=== PATIENT | female | born 1955 | race Caucasian/White ===

== ENCOUNTER → 2017-05-29 | Day surgery (SDC) | payer OTHER ==
[~2017-05-29] VITALS: Ht 167.6 cm; Wt 127.0 kg
[~2017-05-29] MED LIST: ATENOLOL25 MG PO; ATIVAN0.5 MG PO; B12 1MG PE1000 MCG/M IM; CIPRO 500MG TA500 MG PO; CIPRO500 MG PO; CLINDAMYCIN HY300 MG PO; FLUOXETINE10 MG PO; FUROSEMIDE20 MG PO; HIPREX1 GM PO; HYDROXYZINE HCL25 M2 PO; HYDROXYZINE HCL25 MG PO; IBUPROFEN800 M1; KEFLEX250 M1 PO; LANSOPRAZOLE15 MG PO; LANSOPRAZOLE30 M2 PO; MACROBID 100 M100 MG PO; MAGIC MOUTHWASH PO; MYCOSTATIN POWD15 GM TOP; ONDANSETRON4 MG PO; PEPCID20 MG PO; PREDNISONE 20MG20 MG PO; PREDNISONE10 M2 PO; PROBIOTIC FORMU1 CAP PO; PYRIDIUM200 MG PO; VICODIN 500 MG-1 TAB PO; VITAMIN D400 IU PO; ZETIA10 MG PO; ZITHROMAX250 M2 PO
--- NOTE | 2017-05-29 13:07 | Operative Report ---
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 She's been treated with multiple cortisone injections. She experienced short-term relief with these injections but had increasing symptoms that interfere with normal activities of daily living. 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 Due to the ongoing symptoms and only short-term term relief from the conservative measures patient wished to proceed with surgical management. Risks benefits and expectations of surgical and further nonsurgical options were discussed which included but were not limited to persistent pain and triggering injury to blood vessel or nerve anesthesia risks stiffness infection. Patient wished to proceed with surgical management Operative/Procedure Note Note: Technical description of the procedure. Patient was brought to the operating room and transferred to the operating table. Once under appropriate anesthesia the right upper extremity was prepped and draped in standard fashion. Preoperative IV antibiotic's were given prophylactically. A lateral arm was elevated exsanguinated tourniquet was inflated. A standard transverse incision was centered over the MCP crease of the middle finger Measuring approximately 2 cm. Incision was taken down bluntly to the underlying tendon sheath. The A1 alexandra was identified and released under direct vision. Copious irrigation followed. The tendons were evaluated no evidence of any tearing. No evidence of cystic formation. Freely moving tendons after the release was completed. After irrigation was completed the skin was closed with interrupted nylon sutures. Appropriate dressings were applied and patient was awakened and taken the recovery room in good condition. No intraoperative complications Discharge Disposition: PACU
== END ==
LOC: STS 03:36
DX: M65.331 Trigger finger, right middle finger (principal); M65.841 Other synovitis and tenosynovitis, right hand; L93.0 Discoid lupus erythematosus; F17.200 Nicotine dependence, unspecified, uncomplicated; K21.9 Gastro-esophageal reflux disease without esophagitis; M51.16 Intervertebral disc disorders with radiculopathy, lumbar region; E66.01 Morbid (severe) obesity due to excess calories
CPT/HCPCS: J2250

== ENCOUNTER → 2017-10-24 | Day surgery (SDC) | payer OTHER ==
[2008-01-27 08:03] VITALS: BP 135/75
--- NOTE | 2017-10-26 09:25 | RADIOLOGY REPORT ---
EXAMINATION: CR ABDOMEN/INTRAOPERATIVE FLUOROSCOPY CLINICAL INDICATION: Cystoscopy with bilateral ureteroscopy with retrograde pyelogram. COMPARISON: KUB dated 10/22/2015. TECHNIQUE/FINDINGS: Fluoroscopic equipment was dedicated to the operating room for the performance of an intraoperative procedure. Several (3) spot films were acquired and are archived in PACS. Please refer to operative notes for procedural detail. FLUOROSCOPY TIME: 8.8 seconds. IMPRESSION: Administrative dictation for intraoperative fluoroscopy and image archiving in PACS. Please refer to operative notes for details.
--- NOTE | 2017-10-26 10:22 | Operative Report ---
Operative/Inv Procedure Report Surgery Date: 10/24/17 Name of Procedure: cysto: bilateral retrograde pyelogram Pre-Operative Diagnosis: gross hematuria Post-Operative Diagnosis: same Estimated Blood Loss: scant Surgeon/Circuits Engineer: Efe Jeong MD Anesthesia: moderate sedation Complications: none Operative/Procedure Note Note: The patient was taken to the operating room and placed on the OR table in supine position. Time out was performed, with the patient awake, to confirm correct identity, laterality, procedure, and other pertinent intra-operative information. After adequate anesthesia and antibiotics, the patient was then placed lithotomy stirrups draped and prepped in the usual surgical fashion. A 22 Urdu cystoscope sheath with a 30 angle lens was inserted without difficulty. Upon entering the bladder, the bladder was noted to be free of tumor free of stone, with both orifices in their orthotopic position. Bilateral clear efflux of urine was seen from both orifices. The left orifice was intubated with an open ended ureteral catheter and retrograde pyelogram was performed revealing no stone/tumor and brisk excretion of contrast material. After removing the catheter from the left side, the right orifice was intubated, and retrograde pyelogram was performed on the right side. There was no filling defect on the right side as well, with brisk efflux of contrast. Having found NO pathology on either side, the bladder was then hydrodistended 2 with the irrigation fluid at 40 cm above the symphysis pubis. No increased petechiae was noted. No Hunner's ulceration was noted. Of note the patient has a mildly denuded bladder with hypervascularity consistent with history of IC. There was no terminal bleed. After completing the retrograde pyelograms bilaterally, and the hydrodistention, the bladder was then drained and the cystoscope was removed. The pt. tolerated the procedure well was then taken to the recovery room in satisfactory condition. The patient is to be discharged home to follow up in few weeks time for re-evaluation and plans. Findings: no tumor:no stone Discharge Disposition: Same Day Admissions CC: Efe Jeong MD
== END ==
LOC: STS 07:00
DX: R31.9 Hematuria, unspecified (principal); N32.89 Other specified disorders of bladder; K21.9 Gastro-esophageal reflux disease without esophagitis; J45.909 Unspecified asthma, uncomplicated; K44.9 Diaphragmatic hernia without obstruction or gangrene
CPT/HCPCS: 36415; 74018; 93005; 93010; J0131; J1580; J2250

== ENCOUNTER 2018-01-15 17:55 | Emergency (ER) | payer OTHER ==
[~2018-01-15] VITALS: Ht 165.1 cm; Wt 127.0 kg
[~2018-01-15 17:55] MED LIST changes: +ATENOLOL25 M1 PO; -ATENOLOL25 MG PO; -B12 1MG PE1000 MCG/M IM; +CYANOCOBAL1000 MCG/2 IM; +DEXILANT60 M1 PO; +FLUOXETINE HCL10 M2 PO; -FLUOXETINE10 MG PO; +HYDROXYZINE HCL50 M1 PO; +VITAMIN D3400 UNI1 PO; -VITAMIN D400 IU PO; +ZETIA10 M1 PO; -ZETIA10 MG PO
--- NOTE | 2018-01-15 19:57 | CT SCAN REPORT ---
EXAMINATION: CT HEAD WITHOUT CONTRAST CLINICAL INFORMATION: Headache COMPARISON: CT head 12/20/2017 TECHNIQUE: Contiguous axial imaging was performed from the skull base to vertex without intravenous administration of contrast. DLP: 606 mGy-cm FINDINGS: There is no evidence of acute intracranial hemorrhage or territorial infarction. No abnormal mass effect or midline shift is seen. Bowser to white matter differentiation is well preserved. No extra-axial fluid collections are identified. The ventricles are normal in size. There is no abnormal attenuation within the brain parenchyma. The osseous structures and soft tissues are normal. The mastoid air cells and visualized portions of the paranasal sinuses are well aerated. IMPRESSION: No acute intracranial process. No major change from the previous study
--- NOTE | 2018-01-15 20:31 | ED GENERAL ADULT ---
History of Present Illness General Chief Complaint: General Adult Stated Complaint: BOOKER MULTIPLE DAYS, STUNG BY BEE ON NECK Source: patient Exam Limitations: no limitations Vital Signs & Intake/Output Vital Signs & Intake/Output Vital Signs Date Time Temp Pulse Resp B/P B/P Pulse O2 O2 Flow FiO2 Mean Ox Delivery Rate 01/16 2208 98.8 74 20 124/68 97 Room Air 01/15 2206 Room Air Room Air 01/15 2033 98.7 72 18 116/61 97 Room Air ED Intake and Output 01/16 0000 01/15 1200 Intake Total Output Total Balance Patient 280 lb Weight Allergies Coded Allergies: nut - unspecified (Severe, SWELLING, anaphylaxis 10/24/17) Penicillins (Intermediate, rash 10/24/17) ciprofloxacin (From CIPRO) (Intermediate, HIVES, welts 10/24/17) nitrofurantoin (From MACROBID) (Intermediate, decrease bp, diarrhea, hives 10/24) cefuroxime (From CEFTIN) (RASH 12/20/17) trimethoprim (From BACTRIM) (Severe, MIGRAINE 07/03/15) clarithromycin (Intermediate, VOMIT 10/24/17) oxycodone (From PERCODAN) (Intermediate, NAUSEA 10/24/17) sulfamethoxazole (From BACTRIM) (Intermediate, MIGRAINE 10/24/17) codeine (JITTERY 07/03/15) doxycycline (AFIB 07/03/15) Reconcile Medications Atenolol 25 MG TABLET 1 TAB PO DAILY HEART (Reported) Cholecalciferol (Vitamin D3) (Vitamin D3) 400 UNIT TABLET 1 TAB PO DAILY VITAMIN SUPPORT (Reported) Clindamycin HCl (Cleocin HCl) 300 MG CAPSULE 1 CAP PO TID CELLULITIS Cyanocobalamin (Vitamin B-12) (Cyanocobalamin Injection) 1,000 MCG/ML VIAL 1 ML IM Q30D VITAMIN SUPPORT (Reported) Dexlansoprazole (Dexilant) 60 MG COMPA.BP 1 CAP PO DAILY GI (Reported) Ezetimibe (Zetia) 10 MG TABLET 1 TAB PO DAILY CHOLESTEROL (Reported) Fluoxetine HCl 10 MG CAPSULE 1 CAP PO DAILY MENTAL HEALTH (Reported) Hydroxyzine Hydrochloride (Atarax) 50 MG TAB 1 TAB PO TID PRN ITCHING Prednisone 10 MG TABLET 1 DOSE PO ONCE DAILY ALLERGY 5 TABS X 3 DAYS 4 TABS X 3 DAYS 3 TABS X 3 DYAS 2 TABS X 3 DAYS 1 TAB X 3 DAYS Triage Note: 62F WITH PRESSURE HEADACHE X1 MONTH. TAKING MULTIPLE MEDS WITHOUT RELIEF. ALSO WAS STUNG BY A BEE TO BACK OF NECK YESTERDAY AND NOW WORSENING SWELLING, WARMTH AND REDNESS. AFEBRILE. DENIES VISION CHANGES OR PHOTOSENSITIVITY. HEAD PRESSURE IS WORSE WHEN FLAT. +RHINORRHEA AND POST NASAL Triage Nurses Notes Reviewed? yes Onset: Abrupt Duration: week(s): (2 to 3 months), changing over time, continues in ED, getting worse Timing: recent history Injury Environment: home Severity: moderate, severe Severity Numbers: 7 No Modifying Factors: none LMP (ages 10-50): post menopausal, unknown : No Patient currently breastfeeds: No HPI: 62 y/o female past medical history of hypertension, obesity, asthma presents for evaluation of headaches and a bee sting. Patient reports she's been having headaches intermittently over the past 2 or 3 months. She states she'll the headache every day when she wakes up. She describes it as a global pressure worse in the frontal area. She denies any head strike. She states she's been taking Excedrin and Tylenol with only mild improvement. She reports that the headache does go away at the end of the day only to return the next day. She was evaluated here a little less than a month ago with a head CT that was negative she never followed up. She also reports she was stung by a bee to the left posterior neck yesterday and she thinks that it may be infected. She states that the redness and swelling has gotten worse. No fevers no discharge. She denies nausea vomiting abdominal pain chest pain shortness of breath photophobia. She does report some associated nasal congestion and rhinorrhea. (Prem Alvarez) Past History Travel History Traveled to [place] past 21 day No Medical History Any Pertinent Medical History? 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 No (Prem Alvarez) Review of Systems Review of Systems Constitutional: Reports: no symptoms. EENTM: Reports: nasal congestion. Respiratory: Reports: no symptoms. Cardiovascular: Reports: no symptoms. GI: Reports: no symptoms. Genitourinary: Reports: no symptoms. Musculoskeletal: Reports: no symptoms. Skin: Reports: see HPI, erythema. Neurological/Psychological: Reports: headache. Hematologic/Endocrine: Reports: no symptoms. Immunologic/Allergic: Reports: no symptoms. All Other Systems: Reviewed and Negative (Prem Alvarez) Physical Exam Physical Exam General Appearance: well developed/nourished, no apparent distress, alert, awake , obese Head: atraumatic, normal appearance Eyes: Bilateral: normal appearance, PERRL, EOMI. Ears, Nose, Throat: normal pharynx, normal ENT inspection, hearing grossly normal, no sinus tenderness Neck: normal inspection, supple, full range of motion, there is a 2 cm x 5 cm area of induration and erythema located on the left posterior neck. No focal fluctuant area is no discharge no lymphatic streaking no lymphadenopathy. The area is tender to palpation. No visible bee stinger Respiratory: normal breath sounds, chest non-tender, no respiratory distress, lungs clear Cardiovascular: regular rate/rhythm, normal peripheral pulses Peripheral Pulses: 2+ radial (R), 2+ radial (L) Gastrointestinal: soft, non-tender Back: normal inspection, normal range of motion, no vertebral tenderness Extremities: normal inspection, normal range of motion, no edema Neurologic/Psych: no motor/sensory deficits, awake, alert, oriented x 3, normal gait, normal mood/affect, counseling center director II-XII nml as tested, cerebellar testing intact Skin: intact, normal color, warm/dry Lymphatic: no anterior cervical wyatt Core Measures ACS in differential dx? No CVA/TIA Diagnosis: No Sepsis Present: No Sepsis Focused Exam Completed? No (Prem Alvarez) Progress Differential Diagnoses I considered the following diagnoses in my evaluation of the patient: [Cluster headaches, migraine headache, tension headache, intracranial hemorrhage, intracranial mass, temporal arteritis, cellulitis, sinusitis, bee sting] Plan of Care: Orders Procedure Date/time Status LIPASE 01/15 2029 Complete TROPONIN LEVEL 01/15 2001 Complete COMPREHENSIVE METABOLIC PANEL 01/15 2001 Complete CBC WITHOUT DIFFERENTIAL 01/15 2001 Complete EKG 01/15 2001 Active Laboratory Tests 01/15/182028: Anion Gap 8, Estimated GFR > 60, BUN/Creatinine Ratio 18.3, Glucose 101 H, Calcium 9.6, Total Bilirubin 0.3, AST 18, ALT 37, Alkaline Phosphatase 93, Troponin I < 0.01, Total Protein 6.6, Albumin 4.0, Globulin 2.6, Albumin/ Globulin Ratio 1.5, Lipase 90, CBC w Diff NO MAN DIFF REQ, RBC 5.02, MCV 80.2 L , MCH 26.6 L, MCHC 33.1, RDW 16.2 H, MPV 7.9, Gran % 57.2, Lymphocytes % 33.4, Monocytes % 6.0, Eosinophils % 2.9, Basophils % 0.5, Absolute Granulocytes 4.7, Absolute Lymphocytes 2.8, Absolute Monocytes 0.5, Absolute Eosinophils 0.2, Absolute Basophils 0 01/15/182003: Lipase Cancelled Patient is here for evaluation of frequent headaches and a bee sting. She is getting headaches for several months now. The headaches go away completely as the day but returned the next day. She had a normal head CT one month ago. No head trauma. She is neurologically intact. No fevers. She also has a bee sting to the left posterior neck. She is concerned may be infected. A repeat head CT labs EKG ordered. Blood work is unremarkable repeat head CT is negative. Patient was medicated with ibuprofen and is feeling better. Advised that the bee sting to her left posterior neck may not be effective this time may just be inflammation. Patient has significant allergies to multiple antibiotics your antibiotic she can tolerate his clindamycin. Patient was given a prescription for this but advised to wait 2 or 3 days to see if the redness and swelling will go down on its own. Advised her to apply ice use Benadryl and ibuprofen for pain and swelling and itching. If the redness spreads swelling gets worse she has fever start antibiotics for full course. Patient was advised to follow-up with her doctor and was referred to a neurologist for further evaluation of her headaches. Continue ibuprofen as needed. Discussed return precautions patient agrees the plan Diagnostic Imaging: Viewed by Me: Radiology Read, CT Scan. Discussed w/RAD: Radiology Read, CT Scan. Radiology Impression: PATIENT: MASOOD MARTIN PRESENT AGE: 62 PATIENT ACCOUNT NO: [id number] : 54 LOCATION: [facility] ORDERING PHYSICIAN: Prem MUÑOZ SERVICE DATE: 01/15/18 EXAM TYPE: CAT - CT HEAD WO IV CONTRAST EXAMINATION: CT HEAD WITHOUT CONTRAST CLINICAL INFORMATION: Headache COMPARISON: CT head 12/20/2017 TECHNIQUE: Contiguous axial imaging was performed from the skull base to vertex without intravenous administration of contrast. DLP: 606 mGy-cm FINDINGS: There is no evidence of acute intracranial hemorrhage or territorial infarction. No abnormal mass effect or midline shift is seen. Bowser to white matter differentiation is well preserved. No extra-axial fluid collections are identified. The ventricles are normal in size. There is no abnormal attenuation within the brain parenchyma. The osseous structures and soft tissues are normal. The mastoid air cells and visualized portions of the paranasal sinuses are well aerated. IMPRESSION: No acute intracranial process. No major change from the previous study DICTATED BY: Junior Ames MD DATE/TIME DICTATED:01/15/181948 UPHOLSTERY ESTIMATOR:OFE DATE/TIME TRANSCRIBED:1948 CONFIDENTIAL, DO NOT COPY WITHOUT APPROPRIATE AUTHORIZATION. < Electronically signed in Other Vendor System> SIGNED BY: Junior Ames MD 1957 CXR Impression: PATIENT: MASOOD MARTIN PRESENT AGE: 62 PATIENT ACCOUNT NO: [id number] : 54 LOCATION: [facility] ORDERING PHYSICIAN: Prem MUÑOZ SERVICE DATE: 01/15/18 EXAM TYPE: RAD - XRY-CHEST XRAY, TWO VIEWS EXAMINATION: XR CHEST CLINICAL INFORMATION: Chest pain. Pneumonia. CHF. COMPARISON: Chest x-ray 04/15/2017 TECHNIQUE: 2 views of the chest were obtained. FINDINGS: Stable cardiac silhouette. Lungs are well aerated. Similar mild diffuse coarsening of the interstitial markings. No lobar consolidation. No gross pleural effusion or pneumothorax. Degenerative changes of the spine. IMPRESSION: Similar mild diffuse coarsening of the interstitial markings. This likely represents chronic changes, however, a subtle superimposed bronchitis is within the differential. Clinical correlation is recommended. DICTATED BY: Zeferino Nieto MD DATE/TIME DICTATED:01/15/182041 UPHOLSTERY ESTIMATOR:OFE DATE/ TIME TRANSCRIBED:01/15/182041 CONFIDENTIAL, DO NOT COPY WITHOUT APPROPRIATE AUTHORIZATION. <Electronically signed in Other Vendor System> SIGNED BY: Zeferino Nieto MD 01/15/182047 Initial ED EKG: normal sinus rhythm, minimal anterior ST elevation (Prem Alvarez) Departure Departure Disposition: HOME OR SELF CARE Condition: Stable Clinical Impression Primary Impression: Frequent headaches Secondary Impressions: Bee sting Qualifiers: Encounter type: initial encounter Injury intent: accidental or unintentional Qualified Code: T63.441A - Toxic effect of venom of bees, accidental (unintentional), initial encounter Referrals: Adan DIAZ,Kalyan Senior MD,Vj Harrington (PCP/Family) Additional Instructions: Rest and drink plenty of fluids. Ibuprofen 800 mg every 8 hours as needed for headaches pain or swelling. Apply ice to the bee sting area for 15-20 MIN every few hours. Benadryl as needed for itching. Only start antibiotics if you notice spreading redness worsening swelling worsening pain or fever. Otherwise give IT at least 24-48 hours To go away. Follow-up with her primary care doctor to review all results of today's visit. She also make a follow-up with a neurologist for further evaluation of your frequent headaches. Departure Forms: Customer Survey General Discharge Information Prescriptions: Current Visit Scripts Clindamycin HCl (Cleocin HCl) 1 CAP PO TID #30 CAP (Prem Alvarez) PA/SAS PROGRAMMER Co-Sign Statement Statement: ED Attending supervision documentation- I saw and evaluated the patient. I have also reviewed all the pertinent lab results and diagnostic results. I agree with the findings and the plan of care as documented in the PA's/SAS PROGRAMMER's documentation. X I have reviewed the ED Record and agree with the PA's/SAS PROGRAMMER's documentation. [] Additions or exceptions (if any) to the PAs/SAS PROGRAMMER's note and plan are summarized below: [] (Hesham DIAZ,Jigar) Critical Care Note Critical Care Note Critical Care Time: non-applicable (Prem Alvarez)
[2018-01-15 20:44] LABS: ABSOLUTE BASOPHIL COUNT 0 /CUMM (0.0-0.2); ABSOLUTE EOSINOPHIL COUNT 0.2 /CUMM (0.0-0.7); ABSOLUTE GRANULOCYTE CT 4.7 /CUMM (1.4-6.5); ABSOLUTE LYMPH COUNT 2.8 /CUMM (1.2-3.4); ABSOLUTE MONOCYTE COUNT 0.5 /CUMM (0.10-0.60); BASOPHIL % 0.5 % (0.0-2.0); EOSINOPHIL % 2.9 % (0-5); GRANULOCYTE % 57.2 % (42.2-75.2); HEMATOCRIT 40.3 % (37-47); MEAN CORPUSCULAR HGB 26.6 PG (27.0-31.0); MEAN CORPUSCULAR HGB CONC 33.1 G/DL (33.0-37.0); MEAN CORPUSCULAR VOLUME 80.2 FL (81.0-99.0); MEAN PLATELET VOLUME 7.9 FL (7.4-10.4); PLATELET COUNT 315 /CUMM (130-400); RBC DISTRIBUTION WIDTH 16.2 % (11.5-14.5); RED BLOOD CELL CT 5.02 /CUMM (4.20-5.40); WHITE BLOOD CELL COUNT 8.3 /CUMM (4.8-10.8)
--- NOTE | 2018-01-15 20:48 | RADIOLOGY REPORT ---
EXAMINATION: XR CHEST CLINICAL INFORMATION: Chest pain. Pneumonia. CHF. COMPARISON: Chest x-ray 04/15/2017 TECHNIQUE: 2 views of the chest were obtained. FINDINGS: Stable cardiac silhouette. Lungs are well aerated. Similar mild diffuse coarsening of the interstitial markings. No lobar consolidation. No gross pleural effusion or pneumothorax. Degenerative changes of the spine. IMPRESSION: Similar mild diffuse coarsening of the interstitial markings. This likely represents chronic changes, however, a subtle superimposed bronchitis is within the differential. Clinical correlation is recommended.
[2018-01-15] MEDS ORDERED: CLEOCIN HCL300 M1 PO (21:52)
[2018-01-15 22:08] VITALS: BP 124/68
== END 2018-01-15 22:09 ==
LOC: ERH 17:55
PROVIDERS: Physician Assistant Medical
DX: T63.441A Toxic effect of venom of bees, accidental (unintentional), initial encounter (principal); R51 Headache; R09.81 Nasal congestion; J34.89 Other specified disorders of nose and nasal sinuses; I10 Essential (primary) hypertension; F17.210 Nicotine dependence, cigarettes, uncomplicated
CPT/HCPCS: 71046; 93005; 93010